=== PATIENT | female | born 1945 | race Caucasian/White ===

== ENCOUNTER 2020-09-30 10:00 | Emergency (ER) | payer MEDICARE, SELFPAY ==
--- NOTE | ~2020-09-30 | XR_ITS ---
XR wrist LT min 3V DATE: 09/30/2020 11:02 INDICATION: Generalized pain and left wrist for one week. No known injury. TECHNIQUE: 4 views COMPARISON: None FINDINGS: Plate and screws along the distal volar aspect of the radius. 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 Moderate osteopenia. There is mild chronic appearing irregularity of the distal radial articular surface. There is narrowing at the radiocarpal joint. No recent fracture or dislocation, periosteal reaction or bone destruction. IMPRESSION: Narrowing and chronic radial articular irregularity at the radiocarpal joint Plate and screws along the distal radius Osteopenia Reviewed, dictated and finalized at location [facility] IMPRESSION: Narrowing and chronic radial articular irregularity at the radiocar pal joint Plate and screws along the distal radius Osteopenia
[2020-09-30 10:30] VITALS: BP 185/87; PULSE 88; RESP 20; TEMP 36.8; O2SAT 100
--- NOTE | 2020-09-30 10:54 | ED.UPPEXIN ---
HPI - Extremity Injury (Upper) General Chief Complaint: Extremity Injury, Upper Stated Complaint: Wrist Pain Time Seen by Provider: 09/30/20 10:55 Source: patient Mode of arrival: ambulatory Limitations: no limitations History of Present Illness HPI narrative: Renata Cavazos is a 75 yo female with high cholesterol, who is here for L wrist pain that has developed pain post wrist fracture repair from last year. 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 EYES: Denies visual changes, redness, discharge. ENT: Denies rhinorrhea, congestion, sore throat, otalgia. CARDIOVASCULAR: Denies chest pain, palpitations, edema. RESPIRATORY: Denies dyspnea, wheezing, cough GASTROINTESTINAL: Denies abdominal pain, nausea, vomiting, diarrhea. GENITOURINARY: Denies dysuria, hematuria, abnormal discharge SKIN: Denies rash or itching. NEUROLOGIC: Denies numbness, or focal weakness. PSYCHIATRIC: Denies anxiety or depression. Left wrist pain PMFSH Past Medical History Medical History (Updated 09/30/20 @ 11:21 by Bonnie Andino CNP) Fx. left wrist High cholesterol Surgical History Surgical History History of bunionectomy Family History Family History Other High cholesterol Social History Social History Smoking status: Never smoker Alcohol intake: current Comments At time of signature, I agree with nursing past medical, surgical, social and family history. There is no relevant family history pertinent to the presenting complaint. Exam Narrative: Exam Narrative: GENERAL: This is a well-nourished, well-developed patient, in mild distress. HEAD: normocephalic, atraumatic. EYES: Sclera clear/white. Vision is grossly intact. EARS: External ears normal. Hearing grossly intact. NOSE: External nose normal without nasal discharge, nares without redness, no rhinorrhea. THROAT: not performed NECK: Neck supple, CARDIOVASCULAR: Regular rate and rhythm without murmurs, gallops, or rubs. RESPIRATORY: Clear to auscultation. Breath sounds equal bilaterally. No wheezes, rales, or rhonchi. GASTROINTESTINAL: Abdomen soft, SKIN: warm, intact with no suspicious lesions or rash, good texture and turgor. NEURO: awake, alert, and oriented to person, place and time. There were no obvious focal neurologic abnormalities. 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, has pain in certain positions numbness X-ray shows chronic changes narrowing and chronic radial articular irregularity at the radiocarpal joint plate and screws along the distal radius with no displacement patient is also osteopenic Recommend she use a current carpal tunnel wrist support while working and if pain does not improve to return to her surgeon to discuss options Vital Signs Vital signs: Vital Signs Temperature 98.3 F 09/30/20 10:30 Pulse Rate 88 09/30/20 10:30 Respiratory Rate 20 09/30/20 10:30 Blood Pressure 185/87 H 09/30/20 10:30 Pulse Oximetry 100 09/30/20 10:30 Temperature 98.3 F 09/30/20 10:30 Pulse Rate 88 09/30/20 10:30 Respiratory Ra
[2020-09-30 11:30] VITALS: BP 140/80
== END 2020-09-30 11:30 | disposition home or self-care (01) ==
PROVIDERS: Emergency Provider Nurse Practitioner; PCP Internal Medicine
DX: M25.532 Pain in left wrist (principal); E78.00 Pure hypercholesterolemia, unspecified
CPT/HCPCS: 73110; 99213; G0463

== ENCOUNTER 2020-10-04 18:35 | Emergency (ER) | payer MEDICARE, SELFPAY ==
[2020-10-04 18:50] VITALS: BP 158/80; PULSE 88; RESP 18; TEMP 37.2; O2SAT 99
--- NOTE | 2020-10-04 19:04 | ED.GENADULT ---
HPI - General Adult General Chief complaint: Unspecified Stated complaint: COVID Exposure Source: patient Mode of arrival: ambulatory Limitations: no limitations History of Present Illness HPI narrative: Patient is a 75-year-old female who presents requesting Covid testing. Patient reports exposure to positive Covid on Thursday with a coworker. Patient also reports a second coworker was positive today. She denies symptoms at this time. 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 MD complaint: Covid testing Related Data Home Medications Medication Instructions Recorded Confirmed ezetimibe 10 mg PO DAILY 09/30/20 10/04/20 rosuvastatin 5 mg PO DAILY 09/30/20 10/04/20 Allergies Allergy/AdvReac Type Severity Reaction Status Date / Time codeine AdvReac Hallucinati Verified 10/04/20 19:00 ng Review of Systems Review of Systems: Narrative: CONSTITUTIONAL: Denies fever, chills, or sweats. EYES: Denies visual changes, redness, or discharge. ENT: Denies rhinorrhea, congestion, sore throat, or otalgia. CARDIOVASCULAR: Denies chest pain, palpitations, or edema. RESPIRATORY: Denies cough or dyspnea. GASTROINTESTINAL: Denies abdominal pain, nausea, vomiting, or diarrhea. GENITOURINARY: Denies dysuria or hematuria. SKIN: Denies rash or itching. MUSCULOSKELETAL: Denies back pain, joint pain, or myalgia. NEUROLOGIC: Denies headache, numbness, dizziness, or weakness. PSYCHIATRIC: Denies anxiety or depression. [facility] Past Medical History Medical History Fx. left wrist High cholesterol Surgical History Surgical History History of bunionectomy Family History Family History Other High cholesterol Social History Social History Smoking status: Never smoker Alcohol intake: current Comments At the time of signature, I have reviewed and agree with nursing past medical, surgical, social, and family history unless otherwise noted. Please see nursing chart for further information. There is no relevant family history pertinent to the presenting complaint. Exam Narrative: Exam Narrative: GENERAL: Well-appearing, well-nourished, and in no acute distress. HEAD: Normocephalic, atraumatic. EYES:No redness or drainage. Conjunctiva are normal. ENT: Mucous membranes pink and moist. CHEST: No respiratory distress. HEART: Regular rate and rhythm. EXTREMITIES: Normal range of motion. SKIN: Warm, dry, no rash. NEURO: No focal deficits. Alert and oriented x3. Gait steady. PSYCH: Normal affect. No signs of depression or anxiety. Course Vital Signs Vital signs: Vital Signs Temperature 37.2 C 10/04/20 18:50 Pulse Rate 88 10/04/20 18:50 Respiratory Rate 18 10/04/20 18:50 Blood Pressure 158/80 H 10/04/20 18:50 Pulse Oximetry 99 10/04/20 18:50 Temperature 37.2 C 10/04/20 18:50 Pulse Rate 88 10/04/20 18:50 Respiratory Rate 18 10/04/20 18:50 Blood Pressure 158/80 H 10/04/20 18:50 Pulse Oximetry 99 10/04/20 18:50 Medical Decision Making MDM Narrative Medical decision making narrative: Rapid Covid negative. PCR sent at this time. Patient aware that she needs to quarantine until PCR results or until released by the [facility] department. Patient agrees. Patient is stable for discharge to home with outpatient follow-up as needed. Differential Diagnosis Differential Diagnosis: Covid, URI Vital Signs Vital Signs: Vital Signs Temperature 37.2 C 10/04/20 18:50 Pulse Rate 88 10/04/20 18:50 Respiratory Rate 18 10/04/20 18:50 Blood Pressure 158/80 H 10/04/20 18:50 Pulse Oximetry 99 10/04/20 18:50 Temperature 37.2 C 10/04/20 18:50 Pulse Rate 88 10/04/20 18:50 Respiratory Rate 18 10/04/20 18:50 Blood Pressure 158/80 H 03
[2020-10-06 08:28] LABS: SARS-CoV-2 RNA PCR Negative
== END 2020-10-04 19:16 | disposition home or self-care (01) ==
PROVIDERS: Emergency Provider Nurse Practitioner; PCP Internal Medicine
DX: Z20.822 Contact with and (suspected) exposure to COVID-19 (principal); E78.00 Pure hypercholesterolemia, unspecified
CPT/HCPCS: 87426; 99213; C9803; G0463; U0003; U0005